=== PATIENT | female | born 1970 | race Caucasian/White ===

== ENCOUNTER 2017-09-08 16:57 | Emergency (ER) | payer MEDICAID ==
--- NOTE | 2017-09-08 17:10 | EDM.PDOC ---
ED HPI GENERAL MEDICAL PROBLEM - General Chief Complaint: Chest Pain Stated Complaint: CHEST PAIN Time Seen by Provider: 09/08/17 17:05 Source of Information: Reports: Patient, RN, RN Notes Reviewed History Limitations: Reports: No Limitations - History of Present Illness INITIAL COMMENTS - FREE TEXT/NARRATIVE: Patient presents with chest pain which began at 2:30-3:00p.m. She states it got worse after laying down a 10/10 at its worst. When she presented it was a 5/10. It did not radiate. Admits to cough x1 week. She has had fever, chills and diarrhea. No nausea, vomiting or SOB. Onset: Today Location: Reports: Chest Quality: Reports: Ache Severity: Severe Improves with: Reports: None Worsens with: Reports: None Associated Symptoms: Reports: No Other Symptoms Chest Pain Score (Numeric/FACES): 5 - Related Data Allergies Allergy/AdvReac Type Severity Reaction Status Date / Time Sulfa (Sulfonamide Allergy Hives Verified 09/08/17 17:02 Antibiotics) Home Meds: Home Meds Acetaminophen/Caffeine [Excedrin Tension Headache] 1 tab PO ASDIRECTED PRN 03/20 [History] Hydrochlorothiazide 25 mg PO DAILY 09/01/16 [History] Simvastatin [Simvastatin] 10 mg PO DAILY 09/01/16 [History] Past Medical History HEENT History: Reports: Impaired Vision Cardiovascular History: Reports: High Cholesterol, Hypertension Gastrointestinal History: Reports: Cholelithiasis Musculoskeletal History: Reports: Other (See Below) Other Musculoskeletal History: carpal tunel surgery - Past Surgical History GI Surgical History: Reports: Cholecystectomy Female Surgical History: Reports: Hysterectomy Other Musculoskeletal Surgeries/Procedures:: pt wears wrist brace to the right wrist states that she has been to 3 different doctors but does not know why she has the pain, states that this pain started in march 2016 Social & Family History - Family History Family Medical History: Noncontributory - Tobacco Use Smoking Status *Q: Never Smoker Second Hand Smoke Exposure: No - Caffeine Use Caffeine Use: Reports: Coffee - Alcohol Use Days Per Week of Alcohol Use: 0 - Recreational Drug Use Recreational Drug Use: No ED ROS GENERAL - Review of Systems Review Of Systems: ROS reveals no pertinent complaints other than HPI. ED EXAM, GENERAL - Physical Exam Exam: See Below Exam Limited By: No Limitations General Appearance: Alert, WD/WN, No Apparent Distress Eye Exam: Bilateral Eye: Normal Inspection Ears: Normal External Exam, Normal Canal, Hearing Grossly Normal, Normal TMs Nose: Normal Inspection, Normal Mucosa, No Blood Throat/Mouth: Normal Inspection, Normal Lips, Normal Teeth, Normal Gums, Normal Oropharynx, Normal Voice, No Airway Compromise Head: Atraumatic, Normocephalic Neck: Normal Inspection, Supple, Non-Tender, Full Range of Motion Respiratory/Chest: No Respiratory Distress, Lungs Clear, Normal Breath Sounds, No Accessory Muscle Use, Chest Non-Tender Cardiovascular: Normal Peripheral Pulses, Regular Rate, Rhythm, No Edema, No Gallop, No JVD, No Murmur, No Rub GI/Abdominal: Normal Bowel Sounds, Soft, Non-Tender, No Organomegaly, No Distention, No Abnormal Bruit, No Mass (Female) Exam: Deferred Rectal (Female) Exam: Deferred Back Exam: Normal Inspection, Full Range of Motion, NT Extremities: Normal Inspection, Normal Range of Motion, Non-Tender, Normal Capillary Refill, No Pedal Edema Neurological: Alert, Oriented, CN II-XII Intact, Normal Cognition, Normal Gait, Normal Reflexes, No Motor/Sensory Deficits Psychiatric: Normal Affect, Normal Mood Skin Exam: Warm, Dry, Intact, Normal Color, No Rash Lymphatic: No Adenopathy EKG INTERPRETATION EKG Date: 09/08/17 Time: 17:04 Rhythm: Other (sinus rhythm) Rate (Beats/Min): 84 [place]: Normal P-Wave: Present QRS: Normal ST-T: Normal QT: Normal Course - Vital Signs Last Recorded V/S: Last Vital Signs Temp 98.0 F 09/08/17 18:18 Pulse 87 09/08/17 18:18 Resp 16 09/08/17 18:18 BP 124/86 09/08/17 18:18 Pulse Ox 100 09/08/17 18:18 - Orders/Labs/Meds Orders: Active Orders 24 hr Category Date Time Status EKG 12 Lead [EKG Documentation Completion] [RC] STAT Care 09/08/17 17:17 Active Peripheral IV Care [RC] . DIRECTED Care 09/08/17 17:25 Active Sodium Chloride 0.9% [Saline Flush] Med 09/08/17 17:24 Active 10 ml FLUSH ASDIRECTED PRN Peripheral IV Insertion Adult [OM.PC] Stat Oth 09/08/17 17:24 Ordered Medication Orders Sodium Chloride (Saline Flush) 10 ml FLUSH ASDIRECTED PRN PRN Reason: Keep Vein Open Last Admin: 09/08/17 17:47 Dose: 10 ml Labs: Laboratory Tests 09/08/17 09/08/17 Range/Units 17:17 17:17 WBC 5.9 (5.0-10.0) 10^3/uL RBC 5.01 (4.2-5.4) 10^6/uL Hgb 13.5 (12.0-16.0) g/dL Hct 40.9 (37.0-47.0) % MCV 81.6 (80-100) fL MCH 26.9 L (27.0-34.0) pg MCHC 33.0 (33.0-35.0) g/dL Plt Count 187 (150-450) 10^3/uL Neut % (Auto) 62.3 (42.2-75.2) % Lymph % (Auto) 27.9 (20.5-50.1) % [place] % (Auto) 8.5 H (2-8) % Eos % (Auto) 0.8 L (1.0-3.0) % Baso % (Auto) 0.5 (0.0-1.0) % Sodium 138 (135-145) mmol/L Potassium 2.9 L D (3.6-5.0) mmol/L Chloride 99 L (101-111) mmol/L Carbon Dioxide 29.0 (21.0-31.0) mmol/L Anion Gap 12.9 BUN 21 H (7-18) mg/dL Creatinine 0.8 (0.6-1.3) mg/dL Est Cr Clr Drug Dosing 72.69 mL/min Estimated GFR (MDRD) > 60 BUN/Creatinine Ratio 26.25 Glucose 108 H (74-105) mg/dL Calcium 9.8 (8.4-10.2) mg/dl Total Bilirubin 0.7 (0.2-1.0) mg/dL AST 34 (10-42) IU/L ALT 24 (10-60) IU/L Alkaline Phosphatase 79 (42-121) IU/L Troponin I < 0.02 (0.00-0.02) ng/ml Total Protein 7.9 (6.7-8.2) g/dl Albumin 4.6 (3.2-5.5) g/dl Globulin 3.3 Albumin/Globulin Ratio 1.39 Meds: Medications Generic Name Dose Route Start Last Admin Trade Name Terell PRN Reason Stop Dose Admin Sodium Chloride 10 ml 09/08/17 17:24 09/08/17 17:47 Saline Flush FLUSH 10 ml ASDIRECTED PRN Administration Keep Vein Open Discontinued Medications Generic Name Dose Route Start Last Admin Trade Name Terell PRN Reason Stop Dose Admin Potassium Chloride 40 meq 09/08/17 18:19 Klor-Con 10 PO 09/08/17 18:20 ONETIME ONE - Radiology Interpretation Free Text/Narrative:: Chest x-ray: No acute cardiopulmonary process. No significant interval change. See rad report. Departure - Departure Time of Disposition: 18:25 Disposition: Home, Self-Care 01 Condition: Fair Clinical Impression: Hypokalemia, Non-cardiac chest pain Instructions: Nonspecific Chest Pain, [id number], Hypokalemia, Muscle Cramps and Spasms, [id number], Costochondritis, [id number] Referrals: Chetan Salinas MD [Primary Care Provider] - Forms: ED Department Discharge Additional Instructions: RX: Potassium Chloride Follow up at your primary care facility. Drink plenty of fluids - My Orders Last 24 Hours: My Active Orders 09/08/17 17:24 Sodium Chloride 0.9% [Saline Flush] 10 ml FLUSH ASDIRECTED PRN Peripheral IV Insertion Adult [OM.PC] Stat 09/08/17 17:25 Peripheral IV Care [RC] . DIRECTED - Assessment/Plan Last 24 Hours: My Active Orders 09/08/17 17:24 Sodium Chloride 0.9% [Saline Flush] 10 ml FLUSH ASDIRECTED PRN Peripheral IV Insertion Adult [OM.PC] Stat 09/08/17 17:25 Peripheral IV Care [RC] . DIRECTED
[2017-09-08] MEDS ORDERED: Sodium Chloride 0.9% 10 ML Syringe FLUSH PRN (17:24)
[2017-09-08 17:44] LABS: CHLORIDE,CL 99 mmol/L (101-111); SODIUM,NA 138 mmol/L (135-145)
[2017-09-08 18:18] VITALS: BP 124/86
[2017-09-08] MEDS ORDERED: Potassium Chloride 10 MEQ Tab.ER PO ONE (18:19)
--- NOTE | 2017-09-12 10:42 | EKG ---
09/08/2017 - LUIS DAVIS - FINDINGS: I reviewed the EKG and agree with the machine's reading. [facility] /[id number]
== END 2017-09-08 18:15 | disposition home or self-care (01) ==
LOC: DL.ED 16:57
DX: R07.89 Other chest pain (principal); E87.6 Hypokalemia; I10 Essential (primary) hypertension; E78.00 Pure hypercholesterolemia, unspecified; Z79.899 Other long term (current) drug therapy; Z88.2 Allergy status to sulfonamides
CPT/HCPCS: 36415; 71020; 80053; 84484; 85025; 93005; 99285; J7050

== ENCOUNTER 2018-02-01 07:51 | Emergency (ER) | payer MEDICAID, OTHER ==
[2018-02-01 08:11] VITALS: BP 113/88
--- NOTE | 2018-02-01 09:04 | EDM.PDOC ---
ED HPI GENERAL MEDICAL PROBLEM - General Chief Complaint: Upper Extremity Injury/Pain Stated Complaint: LEFT WRIST Time Seen by Provider: 02/01/18 08:15 Source of Information: Reports: Patient History Limitations: Reports: No Limitations - History of Present Illness INITIAL COMMENTS - FREE TEXT/NARRATIVE: C/O pain at left radial wrist and base of left thumb that began 3 or 4 days ago when pt lifted her grandchild. As she reached to put the child down her wrist was twisted and forced into flexion with ulnar deviation. At first it was just "a little sore", but over the next 24 hours it became more painful, especially with ROM and to touch. Pt states that is slowly became swollen as well. Denies bruising, redness, or increased warmth. Denies any other injury, or any other painful or swollen joints. Onset Date: 01/29/18 Duration: Constant Location: Reports: Upper Extremity, Left Quality: Reports: Ache Severity: Moderate Improves with: Reports: Immobilization Worsens with: Reports: Movement Left Wrist Pain Score (Numeric/FACES): 8 - Related Data Allergies Allergy/AdvReac Type Severity Reaction Status Date / Time Sulfa (Sulfonamide Allergy Hives Verified 09/08/17 17:02 Antibiotics) Home Meds: Home Meds Acetaminophen/Caffeine [Excedrin Tension Headache] 1 tab PO ASDIRECTED PRN 03/20 [History] Hydrochlorothiazide 25 mg PO DAILY 09/01/16 [History] Simvastatin 10 mg PO DAILY 09/01/16 [History] SUMAtriptan [Imitrex] 1 tab PO ASDIRECTED PRN 02/01/18 [History] Past Medical History HEENT History: Reports: Impaired Vision Cardiovascular History: Reports: High Cholesterol, Hypertension Gastrointestinal History: Reports: Cholelithiasis Musculoskeletal History: Reports: Other (See Below) Other Musculoskeletal History: carpal tunel surgery - Past Surgical History GI Surgical History: Reports: Cholecystectomy Female Surgical History: Reports: Hysterectomy Musculoskeletal Surgical History: Reports: Other (See Below) Other Musculoskeletal Surgeries/Procedures:: pt wears wrist brace to the right wrist states that she has been to 3 different doctors but does not know why she has the pain, states that this pain started in march 2016 Social & Family History - Family History Family Medical History: Noncontributory - Tobacco Use Smoking Status *Q: Never Smoker Second Hand Smoke Exposure: No - Caffeine Use Caffeine Use: Reports: Coffee - Alcohol Use Days Per Week of Alcohol Use: 0 - Recreational Drug Use Recreational Drug Use: No - Living Situation & Occupation Living situation: Reports: with Family Occupation: Employed Review of Systems - Review of Systems Review Of Systems: ROS reveals no pertinent complaints other than HPI. ED EXAM, GENERAL - Physical Exam Exam: See Below Exam Limited By: No Limitations General Appearance: Alert, WD/WN, No Apparent Distress Head: Atraumatic, Normocephalic Neck: Normal Inspection Respiratory/Chest: No Respiratory Distress Peripheral Pulses: 3+: Radial (L), Radial (R) Extremities: Normal Capillary Refill, Joint Swelling (mild at left radial wrist , normal color, no visible bruising or deformity, no increased warmth, skin is intact.), Limited Range of Motion (left wrist and proximal thumb due to pain). No: Redness Neurological: Alert, No Motor/Sensory Deficits Psychiatric: Normal Mood Skin Exam: Warm, Dry, Intact, Normal Color, No Rash ED TRAUMA EXTREMITY PROCEDURES - Splinting Left Upper Extremity Splint Site: Left wrist and thumb Pre-Procedure NV Status: Normal Post-Procedure NV Status: Normal Splint Material: Velcro Splint Design: Volar, Thumb Spica Applied & Form Fitted By: Nurse Provider Post-Splint Application NV Check: NV Status Normal, Good Position Complications: No Course - Vital Signs Last Recorded V/S: Last Vital Signs Temp 36.6 C 02/01/18 07:53 Pulse 76 02/01/18 07:53 Resp 16 02/01/18 07:53 BP 113/88 02/01/18 07:53 Pulse Ox 100 02/01/18 07:53 - Orders/Labs/Meds Orders: Active Orders 24 hr Category Date Time Status Wrist Comp Min 3V Lt [CR] Urgent Exams 02/01/18 08:03 Taken - Radiology Interpretation Free Text/Narrative:: Xray left wrist: no fracture, soft tissue swelling per Rad. report. Departure - Departure Time of Disposition: 08:59 Disposition: Home, Self-Care 01 Condition: Good Clinical Impression: Tenosynovitis of thumb Sprain of left wrist Qualifiers: Encounter type: initial encounter Qualified Code(s): S63.502A - Unspecified sprain of left wrist, initial encounter - Discharge Information Instructions: Tenosynovitis, Wrist Sprain, Adult Forms: ED Department Discharge Additional Instructions: Rx: Diclofenac DR 75mg *Take with food. Wear left wrist/thumb splint for 7 to 10 days. May remove to shower and wash hands as needed. Rest and apply ice packs to area of pain for 5 to 10 minutes at a time several times a day to reduce pain and swelling. Follow up in clinic in 10 to 15 days for recheck. - My Orders Last 24 Hours: My Active Orders 02/01/18 08:03 Wrist Comp Min 3V Lt [CR] Urgent - Assessment/Plan Last 24 Hours: My Active Orders 02/01/18 08:03 Wrist Comp Min 3V Lt [CR] Urgent
--- NOTE | 2018-02-01 11:20 | CR ---
CLINICAL HISTORY: 47-year-old female reported a "pop" left wrist when lifting. INTERPRETATION: Three views left wrist confirm some soft tissue swelling dorsal aspect. No sign of left wrist fracture or dislocation. No appreciable arthritic degenerative change. (Ring foreign body around the proximal phalanx fourth finger)
== END 2018-02-01 09:19 | disposition home or self-care (01) ==
LOC: DL.ED 07:51
DX: S63.502A Unspecified sprain of left wrist, initial encounter (principal); M65.88 Other synovitis and tenosynovitis, other site; E78.00 Pure hypercholesterolemia, unspecified; I10 Essential (primary) hypertension; Z88.2 Allergy status to sulfonamides; Z79.899 Other long term (current) drug therapy; X50.0XXA Overexertion from strenuous movement or load, initial encounter
CPT/HCPCS: 29125; 73110-LT; 99283

== ENCOUNTER 2018-04-06 07:52 | Emergency (ER) | payer MEDICAID ==
[2018-04-06 08:02] VITALS: BP 126/86
--- NOTE | 2018-04-06 08:05 | EDM.PDOC ---
ED HPI GENERAL MEDICAL PROBLEM - General Chief Complaint: Lower Extremity Injury/Pain Stated Complaint: RT KNEE Time Seen by Provider: 04/06/18 08:04 Source of Information: Reports: Patient, RN, RN Notes Reviewed History Limitations: Reports: No Limitations - History of Present Illness INITIAL COMMENTS - FREE TEXT/NARRATIVE: C/O right knee pain x3 days without any injury. 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 She has not twisted the knee or had any falls. She was bit by a tick 4 days ago and became worried that she might have lyme disease. She denies any fever, chills, rash, joint redness, or swelling. Onset: Gradual Duration: Week(s): (3), Constant Location: Reports: Lower Extremity, Right Quality: Reports: Ache Severity: Severe Improves with: Reports: Immobilization Worsens with: Reports: Movement Associated Symptoms: Reports: No Other Symptoms Right Knee Pain Score (Numeric/FACES): 10 - Related Data Allergies Allergy/AdvReac Type Severity Reaction Status Date / Time Sulfa (Sulfonamide Allergy Hives Verified 04/06/18 08:02 Antibiotics) Home Meds: Home Meds Acetaminophen/Caffeine [Excedrin Tension Headache] 1 tab PO ASDIRECTED PRN 03/20 [History] Hydrochlorothiazide 25 mg PO DAILY 09/01/16 [History] Simvastatin 10 mg PO DAILY 09/01/16 [History] SUMAtriptan [Imitrex] 1 tab PO ASDIRECTED PRN 02/01/18 [History] Past Medical History HEENT History: Reports: Impaired Vision Cardiovascular History: Reports: High Cholesterol, Hypertension Gastrointestinal History: Reports: Cholelithiasis Musculoskeletal History: Reports: Other (See Below) Other Musculoskeletal History: carpal tunel surgery - Past Surgical History GI Surgical History: Reports: Cholecystectomy Female Surgical History: Reports: Hysterectomy Musculoskeletal Surgical History: Reports: Other (See Below) Other Musculoskeletal Surgeries/Procedures:: pt wears wrist brace to the right wrist states that she has been to 3 different doctors but does not know why she has the pain, states that this pain started in march 2016 Social & Family History - Family History Family Medical History: Noncontributory - Caffeine Use Caffeine Use: Reports: Coffee - Living Situation & Occupation Living situation: Reports: with Family Occupation: Employed Review of Systems - Review of Systems Review Of Systems: ROS reveals no pertinent complaints other than HPI. ED EXAM, GENERAL - Physical Exam Exam: See Below Exam Limited By: No Limitations General Appearance: Alert, WD/WN, No Apparent Distress Eye Exam: Bilateral Eye: Normal Inspection Head: Atraumatic, Normocephalic Neck: Normal Inspection, Supple, Non-Tender, Full Range of Motion. No: Lymphadenopathy (L), Lymphadenopathy (R) Respiratory/Chest: No Respiratory Distress, Lungs Clear, Normal Breath Sounds, No Accessory Muscle Use, Chest Non-Tender Cardiovascular: Regular Rate, Rhythm Back Exam: Normal Inspection Extremities: No Pedal Edema, Normal Capillary Refill, Limited Range of Motion ( Rt knee). No: Joint Swelling, Increased Warmth Neurological: Alert, Oriented, CN II-XII Intact, Normal Cognition, No Motor/ Sensory Deficits, Other (antalgic gait favoring Rt lower ext.) Psychiatric: Normal Affect, Normal Mood Skin Exam: Warm, Dry, Intact, Normal Color, No Rash Course - Vital Signs Last Recorded V/S: Last Vital Signs Temp 36.1 C 04/06/18 07:57 Pulse 82 04/06/18 07:57 Resp 16 04/06/18 07:57 BP 126/86 04/06/18 07:57 Pulse Ox 97 04/06/18 07:57 - Orders/Labs/Meds Orders: Active Orders 24 hr Category Date Time Status Knee 3V Rt [CR] Urgent Exams 04/06/18 08:16 Taken - Radiology Interpretation Free Text/Narrative:: Xray Rt knee: no acute fractures, see Rad. report. Departure - Departure Time of Disposition: 08:48 Disposition: Home, Self-Care 01 Condition: Good Clinical Impression: Right medial knee pain Tick bite of back Qualifiers: Encounter type: initial encounter Qualified Code(s): S30.860A - Insect bite ( nonvenomous) of lower back and pelvis, initial encounter - Discharge Information Instructions: Tick Bite Information, Adult, Jszx-[id number], Knee Pain, Adult, Yjur-[id number] Forms: ED Department Discharge Additional Instructions: Rx: Doxycycline 100mg: For tick bite. Light activity as tolerated. Take your home pain medication as prescribed if needed. May use over the counter Ibuprofen (Advil/Motrin) 200mg: Take 3 tablets by mouth every 6 hours as needed for pain. Follow up in clinic for recheck in 5 to 7 days if not improved. - My Orders Last 24 Hours: My Active Orders 04/06/18 08:16 Knee 3V Rt [CR] Urgent - Assessment/Plan Last 24 Hours: My Active Orders 04/06/18 08:16 Knee 3V Rt [CR] Urgent
--- NOTE | 2018-04-06 09:09 | CR ---
Clinical history: 47-year-old female awakened this a.m. with pain medial aspect of the right knee. No injury. Interpretation: Negative plain film exam (AP, lateral and sunrise views). Symmetric knee joint spacing. Homogeneous normal bone density. No right knee joint effusion, fracture, dislocation or radiopaque loose joint body. No sign of pathologic skeletal lesion. No foreign bodies.
== END 2018-04-06 09:01 | disposition home or self-care (01) ==
LOC: DL.ED 07:52
DX: S30.860A Insect bite (nonvenomous) of lower back and pelvis, initial encounter (principal); M25.561 Pain in right knee; E78.00 Pure hypercholesterolemia, unspecified; I10 Essential (primary) hypertension; Z88.2 Allergy status to sulfonamides; Z79.899 Other long term (current) drug therapy; W57.XXXA Bitten or stung by nonvenomous insect and other nonvenomous arthropods, initial encounter
CPT/HCPCS: 73562-RT; 99284

== ENCOUNTER 2018-11-22 09:04 | Emergency (ER) | payer MEDICAID ==
[2018-11-22 09:18] VITALS: BP 128/91
--- NOTE | 2018-11-22 09:36 | EDM.PDOC ---
ED HPI GENERAL MEDICAL PROBLEM - General Chief Complaint: Upper Extremity Injury/Pain Stated Complaint: ARM PAIN [id number] Time Seen by Provider: 11/22/18 09:25 Source of Information: Reports: Patient History Limitations: Reports: No Limitations - History of Present Illness INITIAL COMMENTS - FREE TEXT/NARRATIVE: This 48 yo female patient reports to the ED due to left elbow pain. The patient reports her symptoms started yesterday, but got worse today. 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 The patient reports she has not taken any Tylenol or ibuprofen. The patient also reports she has not been seen by her primary care facility for this pain. The patient denies any trauma or falls on the area. The patient does admit to doing some shoveling (increased activity), but no additional changes in her activity levels. Duration: Day(s): (2), Constant, Getting Worse Location: Reports: Upper Extremity, Left Quality: Reports: Ache, Dull Severity: Moderate Improves with: Reports: Rest Worsens with: Reports: Movement Context: Reports: Activity Associated Symptoms: Reports: No Other Symptoms Treatments PRODUCT DEVELOPMENT INTERN: Denies: Acetaminophen, NSAIDS Left Arm Pain Score (Numeric/FACES): 10 - Related Data Allergies Allergy/AdvReac Type Severity Reaction Status Date / Time Sulfa (Sulfonamide Allergy Hives Verified 11/22/18 09:22 Antibiotics) Home Meds: Home Meds Acetaminophen/Caffeine [Excedrin Tension Headache] 2 tab PO ASDIRECTED PRN 03/20 [History] Hydrochlorothiazide 25 mg PO DAILY 09/01/16 [History] Simvastatin 10 mg PO DAILY 09/01/16 [History] Past Medical History HEENT History: Reports: Impaired Vision Other HEENT History: wears glasses Cardiovascular History: Reports: High Cholesterol, Hypertension Respiratory History: Reports: None Gastrointestinal History: Reports: Cholelithiasis Genitourinary History: Reports: None PET TECHNOLOGIST History: Reports: None Musculoskeletal History: Reports: Other (See Below) Other Musculoskeletal History: carpal tunel surgery Neurological History: Reports: None Psychiatric History: Reports: None Hematologic History: Reports: None Immunologic History: Reports: None Oncologic (Cancer) History: Reports: None Dermatologic History: Reports: None - Infectious Disease History Infectious Disease History: Reports: Chicken Pox - Past Surgical History Head Surgeries/Procedures: Reports: None GI Surgical History: Reports: Cholecystectomy Female Surgical History: Reports: Hysterectomy Musculoskeletal Surgical History: Reports: Other (See Below) Other Musculoskeletal Surgeries/Procedures:: pt wears wrist brace to the right wrist states that she has been to 3 different doctors but does not know why she has the pain, states that this pain started in march 2016 Social & Family History - Family History Family Medical History: Noncontributory - Tobacco Use Smoking Status *Q: Never Smoker - Caffeine Use Caffeine Use: Reports: Soda Other Caffeine Use: maybe a couple times a week. - Recreational Drug Use Recreational Drug Use: No - Living Situation & Occupation Living situation: Reports: with Family Occupation: Employed Review of Systems - Review of Systems Review Of Systems: ROS reveals no pertinent complaints other than HPI. ED EXAM, GENERAL - Physical Exam Exam: See Below Exam Limited By: No Limitations General Appearance: Alert, WD/WN, Mild Distress Eye Exam: Bilateral Eye: EOMI, Normal Inspection, PERRL Ears: Normal External Exam, Normal Canal, Hearing Grossly Normal, Normal TMs Nose: Normal Inspection, Normal Mucosa, No Blood Throat/Mouth: Normal Inspection, Normal Lips, Normal Teeth, Normal Gums, Normal Oropharynx, Normal Voice, No Airway Compromise Head: Atraumatic, Normocephalic Neck: Normal Inspection, Supple, Non-Tender, Full Range of Motion Respiratory/Chest: No Respiratory Distress, Lungs Clear, Normal Breath Sounds, No Accessory Muscle Use, Chest Non-Tender Cardiovascular: Normal Peripheral Pulses, Regular Rate, Rhythm, No Edema, No Gallop, No JVD, No Murmur, No Rub GI/Abdominal: Normal Bowel Sounds (Female) Exam: Deferred Rectal (Female) Exam: Deferred Back Exam: Normal Inspection, Full Range of Motion, NT Extremities: Arm Pain (left elbow pain with movement) Neurological: Alert, Oriented, CN II-XII Intact, Normal Cognition, Normal Gait, Normal Reflexes, No Motor/Sensory Deficits Psychiatric: Normal Affect, Normal Mood Skin Exam: Warm, Dry, Intact, Normal Color, No Rash Lymphatic: No Adenopathy Course - Vital Signs Last Recorded V/S: Last Vital Signs Temp 36.2 C 11/22/18 09:16 Pulse 58 L 11/22/18 09:16 Resp 18 11/22/18 09:16 BP 128/91 H 11/22/18 09:16 Pulse Ox 100 11/22/18 09:16 - Orders/Labs/Meds Orders: Active Orders 24 hr Category Date Time Status Elbow Min 3V Lt [CR] Urgent Exams 11/22/18 09:26 Ordered Departure - Departure Time of Disposition: 09:54 Disposition: Home, Self-Care 01 Condition: Fair Clinical Impression: Strain of left elbow Qualifiers: Encounter type: initial encounter Qualified Code(s): S46.912A - Strain of unspecified muscle, fascia and tendon at shoulder and upper arm level, left arm , initial encounter - Discharge Information *PRESCRIPTION DRUG MONITORING PROGRAM REVIEWED*: Not Applicable *COPY OF PRESCRIPTION DRUG MONITORING REPORT IN PATIENT JEREMIAH: Not Applicable Instructions: Muscle Strain, [id number], How to Use a Sling, [id number] Care Plan Goals: The patient was advised of the examination and x-ray results during the visit. The patient was placed in a sling for her left arm. The patient was encouraged to rest and ice the left elbow over the next week. The patient was offered an injection of Toradol, but the patient choose to go to her home and take ibuprofen as directed. If the patient has any additional symptoms or concerns, the patient should either return to the emergency department or visit her primary care facility. - My Orders Last 24 Hours: My Active Orders 11/22/18 09:26 Elbow Min 3V Lt [CR] Urgent - Assessment/Plan Last 24 Hours: My Active Orders 11/22/18 09:26 Elbow Min 3V Lt [CR] Urgent
--- NOTE | 2018-11-22 09:40 | CR ---
Clinical history: 48-year-old female with left elbow pain (increased in the past 2 days). No known trauma. Interpretation: Negative plain film exam. Homogeneous normal bone density and no reactive arthritic change. No sign of left elbow joint effusion, fracture or dislocation. No foreign bodies.
== END 2018-11-22 10:02 | disposition home or self-care (01) ==
LOC: DL.ED 09:04
DX: S46.912A Strain of unspecified muscle, fascia and tendon at shoulder and upper arm level, left arm, initial encounter (principal); I10 Essential (primary) hypertension; Z79.899 Other long term (current) drug therapy; Z88.2 Allergy status to sulfonamides; X58.XXXA Exposure to other specified factors, initial encounter
CPT/HCPCS: 73080-LT; 99283